=== PATIENT | male | born 1955 | race Caucasian/White ===

== ENCOUNTER 2017-07-04 07:23 | Day surgery (SDC) | payer BC ==
[~2017-07-04 07:23] MED LIST: CEFAZOLIN 1 GM INJ; SOD CHLORIDE 0.9% 1,000 ML IV
[2017-07-04] MEDS ORDERED: FENTAnyl 50 MCG/ML VIAL (10:52)
[2017-07-04] MEDS: CEFAZOLIN 2 GM/50 ML (PMX) 50 ML IVPB (11:05)
[2017-07-04] MEDS ORDERED: SUCCINYLCHOLINE CHLORIDE 100 MG/5 ML SYG IV (11:19)
[2017-07-04] MEDS ORDERED: ROCURONIUM 50 MG INJ (11:19)
[2017-07-04] MEDS ORDERED: ROPIVACAINE 0.5 % 30 ML VIAL (11:19)
[2017-07-04] MEDS ORDERED: LIDOCAINE 2% (SDV) 5 ML INJ (11:19)
[2017-07-04] MEDS ORDERED: PROPOFOL 20 ML (11:19)
[2017-07-04] MEDS ORDERED: SUGAMMADEX SODIUM 200 MG/2 ML VIAL IV (11:20)
[2017-07-04] MEDS: POLYMYXIN/BACITRACIN 1L IRRIG IRR (12:00)
[2017-07-04] MEDS: BUPIVACAINE 0.25% (MPF) 30 ML INJ (12:00)
[2017-07-04] MEDS ORDERED: HYDROmorphONE (0.2 MG/ML) 10ML SYG IV ×6 (12:11→13:00)
[2017-07-04] MEDS: HYDROmorphONE (0.2 MG/ML) 10ML SYG IV (12:20)
[2017-07-04] MEDS: ONDANSETRON 4 MG INJ IV (12:21)
[2017-07-04] MEDS: HYDROCODONE/APAP (5/325) TAB PO (12:26)
[2017-07-04] MEDS ORDERED: FENTAnyl 50 MCG/ML VIAL IV ×5 (12:30→13:00)
[2017-07-04] MEDS ORDERED: METOCLOPRAMIDE 10 MG INJ IV (13:00)
[2017-07-04] MEDS ORDERED: DIPHENHYDRAMINE 50 MG INJ IV (13:00)
[2017-07-04] MEDS ORDERED: ONDANSETRON 4 MG INJ IV (13:00)
[2017-07-04] MEDS ORDERED: MEPERIDINE 25 MG INJ IV (13:00)
== END 2017-07-04 13:45 | disposition home or self-care (01) ==
LOC: SDS 07:23
DX: K40.30 Unilateral inguinal hernia, with obstruction, without gangrene, not specified as recurrent (principal); E11.9 Type 2 diabetes mellitus without complications; Z79.4 Long term (current) use of insulin; F17.200 Nicotine dependence, unspecified, uncomplicated
CPT/HCPCS: 49507; 71045; 82962

== ENCOUNTER 2017-07-06 01:16 | Emergency (ER) | payer BC ==
[2017-07-06 02:46] LABS: ADD MAN DIFF? NO
[2017-07-06 02:55] LABS: BASOPHILS % 0.5 % (0.0-2.0); EOSINOPHILS # 0.1 10^3/ul (0.0-0.5); EOSINOPHILS % 1.1 % (0.0-7.0); HEMOGLOBIN 14.1 g/dl (14.0-18.0); LYMPHOCYTES # 2.8 10^3/ul (0.8-2.9); LYMPHOCYTES % 37.2 % (15.0-51.0); MEAN CORPUSCULAR HEMOGLOBIN 31.8 pg (29.0-33.0); MEAN CORPUSCULAR HGB CONC 34.4 g/dl (32.0-37.0); MEAN CORPUSCULAR VOLUME 92.6 fl (82.0-101.0); MEAN PLATELET VOLUME 9.8 fl (7.4-10.4); MONOCYTE # 0.8 10^3/ul (0.3-0.9); MONOCYTES % 10.1 % (0.0-11.0); NEUTROPHIL # 3.8 10^3/ul (1.6-7.5); NEUTROPHILS % 50.8 % (39.0-77.0); PLATELET COUNT 149 10^3/UL (140-415); RED BLOOD COUNT 4.43 10^6/ul (4.70-6.10); RED CELL DISTRIBUTION WIDTH 12.6 % (11.5-14.5)
[2017-07-06 02:55] LABS: WHITE BLOOD COUNT 7.5 10^3/ul (4.8-10.8)
[2017-07-06] MEDS: morphine 4 MG/ML VIAL IV (03:05)
[2017-07-06] MEDS: ONDANSETRON 4 MG INJ IV (03:05)
[2017-07-06 03:15] LABS: ALANINE AMINOTRANSFERASE 50 IU/L (13-69); ALBUMIN 4.4 g/dl (3.3-4.9); ALBUMIN/GLOBULIN RATIO 1.57; ALKALINE PHOSPHATASE 65 IU/L (42-121); ANION GAP 13 (8-16); ASPARTATE AMINO TRANSFERASE 22 IU/L (15-46); BILIRUBIN,INDIRECT 0.4 mg/dl (0-1.1); BILIRUBIN,TOTAL 0.4 mg/dl (0.2-1.3); BLOOD UREA NITROGEN 8 mg/dl (7-20); CARBON DIOXIDE 28 mmol/L (21-31); CHLORIDE 107 mmol/L (97-110); CREATININE 0.87 mg/dl (0.61-1.24); GLUCOSE 144 mg/dl (70-220); LIPASE 102 U/L (23-300); POTASSIUM 4.1 mmol/L (3.5-5.1); SODIUM 144 mmol/L (135-144); TOTAL PROTEIN 7.2 g/dl (6.1-8.1)
[2017-07-06 03:18] LABS: ADD UMIC NO; UR ASCORBIC ACID NEGATIVE (NEGATIVE); UR BILIRUBIN (Dip) NEGATIVE (NEGATIVE); UR BLOOD (Dip) NEGATIVE (NEGATIVE); UR CLARITY CLEAR (CLEAR); UR COLOR STRAW (YELLOW); UR GLUCOSE (Dip) NEGATIVE (NEGATIVE); UR KETONES (Dip) NEGATIVE (NEGATIVE); UR LEUKOCYTE ESTERASE (Dip) NEGATIVE Leu/ul (NEGATIVE); UR NITRITE (Dip) NEGATIVE (NEGATIVE); UR SPECIFIC GRAVITY (Dip) 1.005 (1.003-1.030); UR TOTAL PROTEIN (Dip) NEGATIVE (NEGATIVE); UR UROBILINOGEN (Dip) NEGATIVE (NEGATIVE)
== END 2017-07-06 04:30 | disposition home or self-care (01) ==
LOC: E/R 01:16
DX: N50.812 Left testicular pain (principal); E11.9 Type 2 diabetes mellitus without complications; F17.210 Nicotine dependence, cigarettes, uncomplicated; Z79.82 Long term (current) use of aspirin; Z79.84 Long term (current) use of oral hypoglycemic drugs
CPT/HCPCS: 36415; 74176; 76870; 80053; 81003; 83690; 85025; 96374; 96375; 99285-25

== ENCOUNTER 2018-07-12 17:38 | Emergency (ER) | payer BC ==
[2018-07-12 23:06] LABS: ADD MAN DIFF? NO
[2018-07-12 23:09] LABS: BASOPHILS % 0.4 % (0.0-2.0); EOSINOPHILS # 0.2 10^3/ul (0.0-0.5); EOSINOPHILS % 2.8 % (0.0-7.0); HEMATOCRIT 42.3 % (42.0-52.0); HEMOGLOBIN 14.3 g/dl (14.0-18.0); LYMPHOCYTES # 3.1 10^3/ul (0.8-2.9); LYMPHOCYTES % 41.1 % (15.0-51.0); MEAN CORPUSCULAR HEMOGLOBIN 30.4 pg (29.0-33.0); MEAN CORPUSCULAR HGB CONC 33.8 g/dl (32.0-37.0); MEAN PLATELET VOLUME 9.6 fl (7.4-10.4); MONOCYTE # 0.5 10^3/ul (0.3-0.9); NEUTROPHIL # 3.6 10^3/ul (1.6-7.5); NEUTROPHILS % 48.3 % (39.0-77.0); PLATELET COUNT 186 10^3/UL (140-415); RED CELL DISTRIBUTION WIDTH 12.9 % (11.5-14.5)
[2018-07-12 23:09] LABS: WHITE BLOOD COUNT 7.4 10^3/ul (4.8-10.8)
[2018-07-12 23:18] LABS: ALANINE AMINOTRANSFERASE 29 IU/L (13-69); ALBUMIN 4.2 g/dl (3.3-4.9); ALBUMIN/GLOBULIN RATIO 1.35; ALKALINE PHOSPHATASE 87 IU/L (42-121); ANION GAP 10 (5-13); ASPARTATE AMINO TRANSFERASE 16 IU/L (15-46); BILIRUBIN,INDIRECT 0.4 mg/dl (0-1.1); BILIRUBIN,TOTAL 0.4 mg/dl (0.2-1.3); BLOOD UREA NITROGEN 11 mg/dl (7-20); CALCIUM 9.2 mg/dl (8.4-10.2); CARBON DIOXIDE 28 mmol/L (21-31); CHLORIDE 103 mmol/L (97-110); CREATININE 0.78 mg/dl (0.61-1.24); Estimated GFR > 60 mL/min (>60); GLUCOSE 195 mg/dl (70-220); LIPASE 125 U/L (23-300); POTASSIUM 3.8 mmol/L (3.5-5.1); SODIUM 141 mmol/L (135-144); TOTAL PROTEIN 7.3 g/dl (6.1-8.1)
[2018-07-12 23:20] LABS: URINE BLOOD (Dip) POC Negative (NEGATIVE); URINE GLUCOSE (Dip) POC Negative (NEGATIVE); URINE KETONES (Dip) POC Negative (NEGATIVE); URINE LEUKOCYTE EST (Dip) POC Negative (NEGATIVE); URINE NITRITE (Dip) POC Negative (NEGATIVE); URINE TOTAL PROTEIN POC 1+ (NEGATIVE)
[2018-07-12] MEDS: KETOROLAC 30 MG INJ IV (23:23)
== END 2018-07-12 23:56 | disposition home or self-care (01) ==
LOC: E/R 23:56
DX: K92.1 Melena (principal); E11.9 Type 2 diabetes mellitus without complications; Z79.84 Long term (current) use of oral hypoglycemic drugs; Z79.82 Long term (current) use of aspirin; Z87.891 Personal history of nicotine dependence
CPT/HCPCS: 36415; 80053; 81003; 83690; 85025; 96374; 99284-25

== ENCOUNTER 2018-08-24 11:51 | Inpatient (IN) | payer BC ==
[2018-08-24 12:44] LABS: ADD MAN DIFF? NO
[2018-08-24 12:49] LABS: WHITE BLOOD COUNT 13.1 10^3/ul (4.8-10.8)
[2018-08-24 12:49] LABS: BASOPHIL # 0.1 10^3/ul (0.0-0.1); BASOPHILS % 0.5 % (0.0-2.0); EOSINOPHILS # 0.1 10^3/ul (0.0-0.5); EOSINOPHILS % 0.8 % (0.0-7.0); HEMOGLOBIN 15.3 g/dl (14.0-18.0); LYMPHOCYTES # 2.5 10^3/ul (0.8-2.9); LYMPHOCYTES % 19.3 % (15.0-51.0); MEAN CORPUSCULAR HEMOGLOBIN 29.9 pg (29.0-33.0); MEAN CORPUSCULAR HGB CONC 33.3 g/dl (32.0-37.0); MEAN CORPUSCULAR VOLUME 89.8 fl (82.0-101.0); MEAN PLATELET VOLUME 9.6 fl (7.4-10.4); MONOCYTES % 7.6 % (0.0-11.0); NEUTROPHIL # 9.3 10^3/ul (1.6-7.5); NEUTROPHILS % 71.3 % (39.0-77.0); PLATELET COUNT 269 10^3/UL (140-415); RED BLOOD COUNT 5.12 10^6/ul (4.70-6.10)
[2018-08-24] MEDS: ONDANSETRON 4 MG INJ IV (13:01)
[2018-08-24] MEDS: SOD CHLORIDE 0.9% 1,000 ML IV (13:01)
[2018-08-24] MEDS: morphine 4 MG/ML VIAL IV ×2 (13:01→16:56)
[2018-08-24 13:07] LABS: ALANINE AMINOTRANSFERASE 33 IU/L (13-69); ALBUMIN 4.7 g/dl (3.3-4.9); ALBUMIN/GLOBULIN RATIO 1.38; ALKALINE PHOSPHATASE 81 IU/L (42-121); ANION GAP 12 (5-13); ASPARTATE AMINO TRANSFERASE 22 IU/L (15-46); BILIRUBIN,INDIRECT 0.8 mg/dl (0-1.1); BILIRUBIN,TOTAL 0.8 mg/dl (0.2-1.3); BLOOD UREA NITROGEN 13 mg/dl (7-20); CALCIUM 10.3 mg/dl (8.4-10.2); CARBON DIOXIDE 24 mmol/L (21-31); CHLORIDE 104 mmol/L (97-110); CREATININE 0.99 mg/dl (0.61-1.24); Estimated GFR > 60 mL/min (>60); GLUCOSE 252 mg/dl (70-220); POTASSIUM 4.2 mmol/L (3.5-5.1); SODIUM 140 mmol/L (135-144); TOTAL PROTEIN 8.1 g/dl (6.1-8.1)
[2018-08-24 13:09] LABS: INR 0.97
[2018-08-24 13:18] LABS: TROPONIN-I < 0.012 ng/ml (0.000-0.120)
[2018-08-24 14:40] LABS: LIPASE 97 U/L (23-300)
[2018-08-24] MEDS ORDERED: ONDANSETRON 4 MG INJ IV ×2 (15:00→18:00)
[2018-08-24] MEDS ORDERED: ACETAMINOPHEN 325 MG TAB PO (15:00)
[2018-08-24] MEDS: LIDOCAINE 2% VISC 15 ML CUP PO (15:30)
[2018-08-24] MEDS: PIPER-TAZO 3.375 GM IV (PMX) 100 ML IVPB ×2 (16:14→21:57)
[2018-08-24] MEDS: metroNIDAZOLE 500 MG/NS (PMX) 100 ML IVPB (16:43)
[2018-08-24] MEDS ORDERED: ACETAMINOPHEN 1000MG/100ML IV 100 ML IVPB (18:00)
[2018-08-24] MEDS ORDERED: GLUCOSE GEL 15 GRAM TUBE BUCCAL (18:30)
[2018-08-24] MEDS ORDERED: GLUCOSE GEL 15 GRAM TUBE PO ×2 (18:30)
[2018-08-24] MEDS ORDERED: DEXTROSE 50% 50 ML SYRINGE IV ×2 (18:30)
[2018-08-24] MEDS ORDERED: GLUCAGON 1 MG INJ IM (18:30)
[2018-08-24] MEDS ORDERED: INSULIN ASPART [NOVOLOG] 3 ML PEN SC (19:00)
[2018-08-24] MEDS: 1/2 NS + KCL 20 MEQ 1,000 ML IV (19:38)
[2018-08-24] MEDS: morphine 2 MG INJ IV (20:26)
[2018-08-24] MEDS: METHYLPREDNISOLONE 40 MG INJ IV (20:50)
[2018-08-24] MEDS: INSULIN GLARGINE [LANTus] (100 UNITS/ML) SYG SC (20:52)
[2018-08-24] MEDS: INSULIN ASPART [NOVOLOG] 3 ML PEN SC (21:52)
[2018-08-25] MEDS: INSULIN ASPART [NOVOLOG] 3 ML PEN SC ×6 (01:43→20:56)
[2018-08-25] MEDS: ACCU-CHEK XX (01:44)
[2018-08-25] MEDS ORDERED: PANTOPRAZOLE 40 MG INJ (04:18)
[2018-08-25] MEDS: 1/2 NS + KCL 20 MEQ 1,000 ML IV ×3 (05:30→23:11)
[2018-08-25] MEDS: PANTOPRAZOLE 40 MG INJ IV (05:48)
[2018-08-25] MEDS: PIPER-TAZO 3.375 GM IV (PMX) 100 ML IVPB ×3 (05:48→21:34)
[2018-08-25 05:51] LABS: ADD MAN DIFF? NO
[2018-08-25 05:56] LABS: WHITE BLOOD COUNT 9.1 10^3/ul (4.8-10.8)
[2018-08-25 05:56] LABS: BASOPHILS % 0.1 % (0.0-2.0); HEMATOCRIT 40.8 % (42.0-52.0); HEMOGLOBIN 13.5 g/dl (14.0-18.0); LYMPHOCYTES # 1.3 10^3/ul (0.8-2.9); LYMPHOCYTES % 13.9 % (15.0-51.0); MEAN CORPUSCULAR HEMOGLOBIN 29.7 pg (29.0-33.0); MEAN CORPUSCULAR HGB CONC 33.1 g/dl (32.0-37.0); MEAN CORPUSCULAR VOLUME 89.9 fl (82.0-101.0); MONOCYTE # 0.3 10^3/ul (0.3-0.9); MONOCYTES % 3.2 % (0.0-11.0); NEUTROPHIL # 7.5 10^3/ul (1.6-7.5); NEUTROPHILS % 82.4 % (39.0-77.0); PLATELET COUNT 217 10^3/UL (140-415); RED BLOOD COUNT 4.54 10^6/ul (4.70-6.10); RED CELL DISTRIBUTION WIDTH 13.2 % (11.5-14.5)
[2018-08-25 06:24] LABS: ANION GAP 8 (5-13); BLOOD UREA NITROGEN 13 mg/dl (7-20); CALCIUM 8.8 mg/dl (8.4-10.2); CARBON DIOXIDE 24 mmol/L (21-31); CHLORIDE 106 mmol/L (97-110); CREATININE 0.89 mg/dl (0.61-1.24); Estimated GFR > 60 mL/min (>60); GLUCOSE 218 mg/dl (70-220); POTASSIUM 4.5 mmol/L (3.5-5.1); SODIUM 138 mmol/L (135-144)
[2018-08-25] MEDS: METHYLPREDNISOLONE 40 MG INJ IV ×2 (08:11→20:54)
[2018-08-25] MEDS: INSULIN GLARGINE [LANTus] (100 UNITS/ML) SYG SC (20:55)
[2018-08-26] MEDS: INSULIN ASPART [NOVOLOG] 3 ML PEN SC ×6 (00:36→20:35)
[2018-08-26] MEDS: ACCU-CHEK XX (01:02)
[2018-08-26] MEDS: PANTOPRAZOLE 40 MG INJ IV (05:37)
[2018-08-26] MEDS: PIPER-TAZO 3.375 GM IV (PMX) 100 ML IVPB ×3 (05:37→21:05)
[2018-08-26] MEDS: METHYLPREDNISOLONE 40 MG INJ IV ×2 (08:10→20:35)
[2018-08-26] MEDS: 1/2 NS + KCL 20 MEQ 1,000 ML IV ×3 (10:50→21:40)
[2018-08-26] MEDS: INSULIN GLARGINE [LANTus] (100 UNITS/ML) SYG SC (20:36)
[2018-08-27] MEDS: ACCU-CHEK XX (02:00)
[2018-08-27] MEDS ORDERED: ACCU-CHEK XX (02:00)
[2018-08-27] MEDS: PANTOPRAZOLE 40 MG INJ IV (05:13)
[2018-08-27] MEDS: PIPER-TAZO 3.375 GM IV (PMX) 100 ML IVPB ×3 (05:13→20:52)
[2018-08-27] MEDS: METHYLPREDNISOLONE 40 MG INJ IV (09:43)
[2018-08-27] MEDS: INSULIN ASPART [NOVOLOG] 3 ML PEN SC ×4 (09:43→20:50)
[2018-08-27] MEDS: 1/2 NS + KCL 20 MEQ 1,000 ML IV ×2 (09:46→22:53)
[2018-08-27] MEDS: IOHEXOL 300MG/ML 150 ML BTL ×3 (12:30→12:31)
[2018-08-27] MEDS: PEG/ELECTROLYTES 4L BTL PO (17:40)
[2018-08-27] MEDS: INSULIN GLARGINE [LANTus] (100 UNITS/ML) SYG SC (20:59)
[2018-08-28] MEDS: INSULIN ASPART [NOVOLOG] 3 ML PEN SC ×6 (01:02→21:00)
[2018-08-28] MEDS: ACCU-CHEK XX (01:04)
[2018-08-28] MEDS: PIPER-TAZO 3.375 GM IV (PMX) 100 ML IVPB ×2 (05:17→12:57)
[2018-08-28] MEDS: PANTOPRAZOLE 40 MG INJ IV (05:17)
[2018-08-28] MEDS: 1/2 NS + KCL 20 MEQ 1,000 ML IV (11:10)
[2018-08-28] MEDS: PROPOFOL 40 ML (15:37)
[2018-08-28] MEDS: LIDOCAINE 100 MG SYRINGE (15:37)
[2018-08-28] MEDS ORDERED: ONDANSETRON 4 MG INJ IV (16:00)
[2018-08-28] MEDS ORDERED: METOCLOPRAMIDE 10 MG INJ IV (16:00)
[2018-08-28] MEDS ORDERED: LABETALOL HCL 20MG INJ IV (16:00)
[2018-08-28] MEDS ORDERED: hydrALAzine 20 MG INJ IV (16:00)
[2018-08-28] MEDS: INSULIN GLARGINE [LANTus] (100 UNITS/ML) SYG SC (21:02)
[2018-08-28] MEDS: morphine 2 MG INJ IV (23:32)
[2018-08-29] MEDS: ACCU-CHEK XX (01:00)
[2018-08-29 01:17] LABS: TROPONIN-I < 0.012 ng/ml (0.000-0.120)
[2018-08-29] MEDS: 1/2 NS + KCL 20 MEQ 1,000 ML IV ×4 (02:26→19:30)
[2018-08-29] MEDS: PANTOPRAZOLE 40 MG INJ IV (05:36)
[2018-08-29 06:26] LABS: CHOL/HDL RATIO 4.2 RATIO; HDL CHOLESTEROL 28 mg/dl (30-78); LDL CHOLESTEROL,CALCULATED 51 mg/dl; TRIGLYCERIDES 194 mg/dl (0-149)
[2018-08-29 06:26] LABS: CHOLESTEROL 118 mg/dl (100-200)
[2018-08-29 06:37] LABS: TROPONIN-I < 0.012 ng/ml (0.000-0.120)
[2018-08-29] MEDS: INSULIN ASPART [NOVOLOG] 3 ML PEN SC ×4 (08:28→20:43)
[2018-08-29 14:38] LABS: ADD MAN DIFF? NO
[2018-08-29 14:41] LABS: WHITE BLOOD COUNT 8.4 10^3/ul (4.8-10.8)
[2018-08-29 14:41] LABS: BASOPHILS % 0.4 % (0.0-2.0); EOSINOPHILS # 0.1 10^3/ul (0.0-0.5); EOSINOPHILS % 1.3 % (0.0-7.0); HEMATOCRIT 41.6 % (42.0-52.0); LYMPHOCYTES % 35.2 % (15.0-51.0); MEAN CORPUSCULAR HEMOGLOBIN 30.1 pg (29.0-33.0); MEAN CORPUSCULAR HGB CONC 33.7 g/dl (32.0-37.0); MEAN CORPUSCULAR VOLUME 89.5 fl (82.0-101.0); MEAN PLATELET VOLUME 9.8 fl (7.4-10.4); MONOCYTE # 0.6 10^3/ul (0.3-0.9); MONOCYTES % 6.9 % (0.0-11.0); NEUTROPHIL # 4.7 10^3/ul (1.6-7.5); PLATELET COUNT 209 10^3/UL (140-415); RED BLOOD COUNT 4.65 10^6/ul (4.70-6.10); RED CELL DISTRIBUTION WIDTH 13.3 % (11.5-14.5)
[2018-08-29 14:57] LABS: ANION GAP 9 (5-13); BLOOD UREA NITROGEN 15 mg/dl (7-20); CALCIUM 8.9 mg/dl (8.4-10.2); CARBON DIOXIDE 26 mmol/L (21-31); CHLORIDE 104 mmol/L (97-110); CREATININE 0.91 mg/dl (0.61-1.24); Estimated GFR > 60 mL/min (>60); GLUCOSE 259 mg/dl (70-220); POTASSIUM 4.6 mmol/L (3.5-5.1); SODIUM 139 mmol/L (135-144)
[2018-08-29 15:00] LABS: INR 0.93; PARTIAL THROMBOPLASTIN TIME 25.9 Sec (23.0-35.0); PROTIME 12.6 Sec (11.9-14.9); THROMBIN TIME 15.3 SEC (13.8-19.1)
[2018-08-29 15:03] LABS: PLATELET COUNT 215 10^3/UL (140-415)
[2018-08-29 18:31] LABS: HEMOGLOBIN A1C 8.6 % (0-5.9)
[2018-08-29] MEDS: INSULIN GLARGINE [LANTus] (100 UNITS/ML) SYG SC (20:43)
[2018-08-30] MEDS: ACCU-CHEK XX (02:00)
[2018-08-30] MEDS: 1/2 NS + KCL 20 MEQ 1,000 ML IV ×2 (06:11→20:16)
[2018-08-30] MEDS: PANTOPRAZOLE 40 MG INJ IV (06:11)
[2018-08-30 06:57] LABS: ADD MAN DIFF? NO
[2018-08-30 07:01] LABS: WHITE BLOOD COUNT 7.3 10^3/ul (4.8-10.8)
[2018-08-30 07:01] LABS: BASOPHILS % 0.3 % (0.0-2.0); EOSINOPHILS # 0.2 10^3/ul (0.0-0.5); HEMATOCRIT 41.2 % (42.0-52.0); HEMOGLOBIN 13.5 g/dl (14.0-18.0); LYMPHOCYTES # 3.2 10^3/ul (0.8-2.9); LYMPHOCYTES % 43.2 % (15.0-51.0); MEAN CORPUSCULAR HEMOGLOBIN 29.8 pg (29.0-33.0); MEAN CORPUSCULAR HGB CONC 32.8 g/dl (32.0-37.0); MEAN CORPUSCULAR VOLUME 90.9 fl (82.0-101.0); MEAN PLATELET VOLUME 9.9 fl (7.4-10.4); MONOCYTE # 0.6 10^3/ul (0.3-0.9); MONOCYTES % 8.3 % (0.0-11.0); NEUTROPHIL # 3.3 10^3/ul (1.6-7.5); NEUTROPHILS % 44.9 % (39.0-77.0); PLATELET COUNT 192 10^3/UL (140-415); RED BLOOD COUNT 4.53 10^6/ul (4.70-6.10); RED CELL DISTRIBUTION WIDTH 13.2 % (11.5-14.5)
[2018-08-30 07:33] LABS: ALANINE AMINOTRANSFERASE 47 IU/L (13-69); ALBUMIN 3.7 g/dl (3.3-4.9); ALBUMIN/GLOBULIN RATIO 1.37; ALKALINE PHOSPHATASE 57 IU/L (42-121); ANION GAP 8 (5-13); ASPARTATE AMINO TRANSFERASE 33 IU/L (15-46); BILIRUBIN,INDIRECT 0.4 mg/dl (0-1.1); BILIRUBIN,TOTAL 0.4 mg/dl (0.2-1.3); BLOOD UREA NITROGEN 12 mg/dl (7-20); CALCIUM 8.8 mg/dl (8.4-10.2); CARBON DIOXIDE 28 mmol/L (21-31); CHLORIDE 103 mmol/L (97-110); CREATININE 0.91 mg/dl (0.61-1.24); Estimated GFR > 60 mL/min (>60); GLUCOSE 177 mg/dl (70-220); POTASSIUM 4.6 mmol/L (3.5-5.1); SODIUM 139 mmol/L (135-144); TOTAL PROTEIN 6.4 g/dl (6.1-8.1)
[2018-08-30 07:36] LABS: INR 0.99; PROTIME 13.2 Sec (11.9-14.9)
[2018-08-30 07:36] LABS: HEMOGLOBIN A1C 8.5 % (0-5.9)
[2018-08-30 07:37] LABS: PARTIAL THROMBOPLASTIN TIME 26.8 Sec (23.0-35.0)
[2018-08-30] MEDS: INSULIN ASPART [NOVOLOG] 3 ML PEN SC ×4 (09:00→21:36)
[2018-08-30] MEDS ORDERED: PROPOFOL 20 ML (11:32)
[2018-08-30] MEDS ORDERED: MEPERIDINE 100 MG INJ (11:32)
[2018-08-30] MEDS ORDERED: NEOSTIGMINE 3 MG/3 ML SYRINGE ×2 (11:32→12:37)
[2018-08-30] MEDS ORDERED: GLYCOPYRROLATE 0.4 MG INJ ×3 (11:32→12:37)
[2018-08-30] MEDS ORDERED: LIDOCAINE 2% (SDV) 5 ML INJ (11:32)
[2018-08-30] MEDS ORDERED: SUCCINYLCHOLINE CHLORIDE 100 MG/5 ML SYG IV (11:32)
[2018-08-30] MEDS ORDERED: ROCURONIUM 50 MG INJ ×3 (11:32→14:51)
[2018-08-30] MEDS ORDERED: CEFAZOLIN 1 GM INJ (11:56)
[2018-08-30] MEDS ORDERED: metroNIDAZOLE 500 MG/NS (PMX) 100 ML IVPB ×3 (12:05→17:00)
[2018-08-30] MEDS ORDERED: ATROPINE 1 MG/10 ML SYRINGE (12:37)
[2018-08-30] MEDS: LIDOCAINE 1%/EPI (1:100,000) (MDV) 20 ML (12:39)
[2018-08-30] MEDS: BUPIVACAINE 0.5% (SDV) 30 ML INJ (12:40)
[2018-08-30] MEDS ORDERED: METOCLOPRAMIDE 10 MG INJ IV (15:30)
[2018-08-30] MEDS ORDERED: FENTAnyl 50 MCG/ML VIAL IV ×2 (15:30)
[2018-08-30] MEDS ORDERED: MIDAZOLAM 1 MG/ML 2 ML INJ IV (15:30)
[2018-08-30] MEDS ORDERED: LABETALOL HCL 20MG INJ IV (15:30)
[2018-08-30] MEDS ORDERED: hydrALAzine 20 MG INJ IV (15:30)
[2018-08-30] MEDS ORDERED: EPHEDrine SULFATE 50 MG/5 ML SYG IV (15:30)
[2018-08-30] MEDS ORDERED: DIPHENHYDRAMINE 50 MG INJ IV (15:30)
[2018-08-30] MEDS ORDERED: HYDROmorphONE 1 MG/5 ML IV SYRINGE IV ×2 (15:30)
[2018-08-30] MEDS: FENTAnyl 50 MCG/ML VIAL IV ×2 (15:40→15:58)
[2018-08-30] MEDS: HYDROmorphONE 1 MG/5 ML IV SYRINGE IV (16:06)
[2018-08-30] MEDS: MEPERIDINE 25 MG INJ IV (16:07)
[2018-08-30] MEDS: ONDANSETRON 4 MG INJ IV (16:07)
[2018-08-30] MEDS ORDERED: CEFAZOLIN 2 GM/50 ML (PMX) 50 ML IVPB (16:30)
[2018-08-30] MEDS ORDERED: IBUPROFEN 600 MG TAB PO (16:30)
[2018-08-30] MEDS ORDERED: ONDANSETRON 4 MG INJ IV (16:30)
[2018-08-30] MEDS: morphine 2 MG INJ IV (21:01)
[2018-08-30] MEDS: CEFAZOLIN 2 GM/50 ML (PMX) 50 ML IVPB (22:03)
[2018-08-30] MEDS: INSULIN GLARGINE [LANTus] (100 UNITS/ML) SYG SC (22:09)
[2018-08-30] MEDS: metroNIDAZOLE 500 MG/NS (PMX) 100 ML IVPB (22:49)
[2018-08-30] MEDS: HYDROCODONE/APAP (5/325) TAB PO (23:34)
[2018-08-31] MEDS: INSULIN ASPART [NOVOLOG] 3 ML PEN SC ×6 (01:00→21:00)
[2018-08-31] MEDS: morphine 2 MG INJ IV ×5 (01:25→20:05)
[2018-08-31] MEDS: ACCU-CHEK XX (02:00)
[2018-08-31] MEDS: CEFAZOLIN 2 GM/50 ML (PMX) 50 ML IVPB ×3 (04:40→20:05)
[2018-08-31] MEDS: ACETAMINOPHEN 325 MG TAB PO (05:02)
[2018-08-31] MEDS: PANTOPRAZOLE 40 MG INJ IV (05:28)
[2018-08-31] MEDS: metroNIDAZOLE 500 MG/NS (PMX) 100 ML IVPB ×3 (05:35→23:08)
[2018-08-31] MEDS: 1/2 NS + KCL 20 MEQ 1,000 ML IV ×2 (07:03→11:24)
[2018-08-31] MEDS: HYDROCODONE/APAP (5/325) TAB PO ×2 (11:19→18:24)
[2018-08-31 14:47] LABS: ADD MAN DIFF? NO
[2018-08-31 14:50] LABS: BASOPHILS % 0.2 % (0.0-2.0); EOSINOPHILS # 0.1 10^3/ul (0.0-0.5); EOSINOPHILS % 0.5 % (0.0-7.0); HEMATOCRIT 41.7 % (42.0-52.0); HEMOGLOBIN 13.8 g/dl (14.0-18.0); LYMPHOCYTES # 2.1 10^3/ul (0.8-2.9); LYMPHOCYTES % 19.4 % (15.0-51.0); MEAN CORPUSCULAR HEMOGLOBIN 30.2 pg (29.0-33.0); MEAN CORPUSCULAR HGB CONC 33.1 g/dl (32.0-37.0); MEAN CORPUSCULAR VOLUME 91.2 fl (82.0-101.0); MEAN PLATELET VOLUME 9.5 fl (7.4-10.4); MONOCYTES % 9.3 % (0.0-11.0); NEUTROPHIL # 7.7 10^3/ul (1.6-7.5); NEUTROPHILS % 70.2 % (39.0-77.0); PLATELET COUNT 212 10^3/UL (140-415); RED BLOOD COUNT 4.57 10^6/ul (4.70-6.10); RED CELL DISTRIBUTION WIDTH 13.2 % (11.5-14.5)
[2018-08-31 15:12] LABS: ANION GAP 11 (5-13); BLOOD UREA NITROGEN 11 mg/dl (7-20); CALCIUM 8.6 mg/dl (8.4-10.2); CARBON DIOXIDE 27 mmol/L (21-31); CHLORIDE 100 mmol/L (97-110); CREATININE 1.02 mg/dl (0.61-1.24); Estimated GFR > 60 mL/min (>60); GLUCOSE 111 mg/dl (70-220); POTASSIUM 4.2 mmol/L (3.5-5.1); SODIUM 138 mmol/L (135-144)
[2018-08-31] MEDS: INSULIN GLARGINE [LANTus] (100 UNITS/ML) SYG SC (21:46)
[2018-09-01] MEDS: morphine 2 MG INJ IV ×5 (00:08→20:41)
[2018-09-01] MEDS: 1/2 NS + KCL 20 MEQ 1,000 ML IV ×4 (00:08→16:42)
[2018-09-01] MEDS: INSULIN ASPART [NOVOLOG] 3 ML PEN SC ×6 (01:00→21:00)
[2018-09-01] MEDS: ACCU-CHEK XX (02:00)
[2018-09-01] MEDS: CEFAZOLIN 2 GM/50 ML (PMX) 50 ML IVPB ×3 (04:43→20:50)
[2018-09-01] MEDS: metroNIDAZOLE 500 MG/NS (PMX) 100 ML IVPB ×3 (04:49→20:47)
[2018-09-01] MEDS: PANTOPRAZOLE 40 MG INJ IV (05:45)
[2018-09-01 05:53] LABS: ADD MAN DIFF? NO
[2018-09-01 05:59] LABS: BASOPHILS % 0.2 % (0.0-2.0); EOSINOPHILS # 0.2 10^3/ul (0.0-0.5); EOSINOPHILS % 1.4 % (0.0-7.0); HEMATOCRIT 39.5 % (42.0-52.0); HEMOGLOBIN 12.9 g/dl (14.0-18.0); LYMPHOCYTES # 1.9 10^3/ul (0.8-2.9); LYMPHOCYTES % 17.8 % (15.0-51.0); MEAN CORPUSCULAR HEMOGLOBIN 30.1 pg (29.0-33.0); MEAN CORPUSCULAR HGB CONC 32.7 g/dl (32.0-37.0); MEAN CORPUSCULAR VOLUME 92.1 fl (82.0-101.0); MEAN PLATELET VOLUME 9.8 fl (7.4-10.4); MONOCYTE # 1.3 10^3/ul (0.3-0.9); MONOCYTES % 12.4 % (0.0-11.0); NEUTROPHILS % 67.5 % (39.0-77.0); PLATELET COUNT 173 10^3/UL (140-415); RED BLOOD COUNT 4.29 10^6/ul (4.70-6.10); RED CELL DISTRIBUTION WIDTH 13.3 % (11.5-14.5)
[2018-09-01 05:59] LABS: WHITE BLOOD COUNT 10.4 10^3/ul (4.8-10.8)
[2018-09-01 06:07] LABS: ANION GAP 9 (5-13); BLOOD UREA NITROGEN 12 mg/dl (7-20); CALCIUM 8.8 mg/dl (8.4-10.2); CARBON DIOXIDE 26 mmol/L (21-31); CHLORIDE 104 mmol/L (97-110); Estimated GFR > 60 mL/min (>60); GLUCOSE 82 mg/dl (70-220); POTASSIUM 4.3 mmol/L (3.5-5.1); SODIUM 139 mmol/L (135-144)
[2018-09-01 16:11] LABS: ADD UMIC YES; UR ASCORBIC ACID NEGATIVE (NEGATIVE); UR BILIRUBIN (Dip) NEGATIVE (NEGATIVE); UR BLOOD (Dip) NEGATIVE (NEGATIVE); UR CLARITY CLEAR (CLEAR); UR COLOR YELLOW (YELLOW); UR GLUCOSE (Dip) NEGATIVE (NEGATIVE); UR KETONES (Dip) 2+ mg/dL (NEGATIVE); UR LEUKOCYTE ESTERASE (Dip) TRACE Leu/ul (NEGATIVE); UR MUCUS FEW /HPF (NONE SEEN); UR NITRITE (Dip) NEGATIVE (NEGATIVE); UR RBC 2 /HPF (0-5); UR TOTAL PROTEIN (Dip) NEGATIVE (NEGATIVE); UR UROBILINOGEN (Dip) NEGATIVE (NEGATIVE); UR WBC 2 /HPF (0-5)
[2018-09-01] MEDS: HYDROCODONE/APAP (5/325) TAB PO ×2 (16:30→23:05)
[2018-09-01] MEDS: INSULIN GLARGINE [LANTus] (100 UNITS/ML) SYG SC (21:46)
[2018-09-02] MEDS: INSULIN ASPART [NOVOLOG] 3 ML PEN SC ×6 (01:00→21:00)
[2018-09-02] MEDS: morphine 2 MG INJ IV ×4 (01:15→18:14)
[2018-09-02] MEDS: ACCU-CHEK XX (02:00)
[2018-09-02] MEDS: CEFAZOLIN 2 GM/50 ML (PMX) 50 ML IVPB ×3 (04:16→20:28)
[2018-09-02] MEDS: metroNIDAZOLE 500 MG/NS (PMX) 100 ML IVPB ×3 (04:16→20:38)
[2018-09-02] MEDS: 1/2 NS + KCL 20 MEQ 1,000 ML IV ×3 (04:16→17:08)
[2018-09-02] MEDS: PANTOPRAZOLE 40 MG INJ IV (05:44)
[2018-09-02 05:52] LABS: ADD MAN DIFF? NO
[2018-09-02 06:00] LABS: WHITE BLOOD COUNT 7.3 10^3/ul (4.8-10.8)
[2018-09-02 06:00] LABS: BASOPHILS % 0.3 % (0.0-2.0); EOSINOPHILS # 0.3 10^3/ul (0.0-0.5); EOSINOPHILS % 3.6 % (0.0-7.0); HEMATOCRIT 36.6 % (42.0-52.0); LYMPHOCYTES # 1.5 10^3/ul (0.8-2.9); LYMPHOCYTES % 20.8 % (15.0-51.0); MEAN CORPUSCULAR HEMOGLOBIN 29.7 pg (29.0-33.0); MEAN CORPUSCULAR HGB CONC 32.8 g/dl (32.0-37.0); MEAN CORPUSCULAR VOLUME 90.6 fl (82.0-101.0); MEAN PLATELET VOLUME 9.7 fl (7.4-10.4); MONOCYTE # 0.9 10^3/ul (0.3-0.9); MONOCYTES % 12.4 % (0.0-11.0); NEUTROPHIL # 4.5 10^3/ul (1.6-7.5); NEUTROPHILS % 62.5 % (39.0-77.0); PLATELET COUNT 178 10^3/UL (140-415); RED BLOOD COUNT 4.04 10^6/ul (4.70-6.10); RED CELL DISTRIBUTION WIDTH 13.2 % (11.5-14.5)
[2018-09-02 06:20] LABS: ANION GAP 10 (5-13); BLOOD UREA NITROGEN 13 mg/dl (7-20); CARBON DIOXIDE 22 mmol/L (21-31); CHLORIDE 108 mmol/L (97-110); Estimated GFR > 60 mL/min (>60); GLUCOSE 87 mg/dl (70-220); POTASSIUM 4.1 mmol/L (3.5-5.1); SODIUM 140 mmol/L (135-144)
[2018-09-02] MEDS: HYDROCODONE/APAP (5/325) TAB PO (19:51)
[2018-09-02] MEDS: INSULIN GLARGINE [LANTus] (100 UNITS/ML) SYG SC (20:50)
[2018-09-03] MEDS: INSULIN ASPART [NOVOLOG] 3 ML PEN SC ×3 (01:00→08:48)
[2018-09-03] MEDS: ACCU-CHEK XX (01:48)
[2018-09-03] MEDS: CEFAZOLIN 2 GM/50 ML (PMX) 50 ML IVPB ×2 (04:25→11:56)
[2018-09-03] MEDS: 1/2 NS + KCL 20 MEQ 1,000 ML IV ×3 (05:25→17:29)
[2018-09-03] MEDS: metroNIDAZOLE 500 MG/NS (PMX) 100 ML IVPB ×2 (05:25→12:43)
[2018-09-03] MEDS: PANTOPRAZOLE 40 MG INJ IV (05:45)
[2018-09-03] MEDS: HYDROCODONE/APAP (5/325) TAB PO ×3 (05:46→18:32)
[2018-09-03 06:06] LABS: ADD MAN DIFF? NO
[2018-09-03 06:23] LABS: WHITE BLOOD COUNT 6.8 10^3/ul (4.8-10.8)
[2018-09-03 06:23] LABS: BASOPHILS % 0.4 % (0.0-2.0); EOSINOPHILS # 0.2 10^3/ul (0.0-0.5); EOSINOPHILS % 2.9 % (0.0-7.0); HEMATOCRIT 36.4 % (42.0-52.0); HEMOGLOBIN 11.9 g/dl (14.0-18.0); LYMPHOCYTES # 1.6 10^3/ul (0.8-2.9); LYMPHOCYTES % 23.1 % (15.0-51.0); MEAN CORPUSCULAR HEMOGLOBIN 29.7 pg (29.0-33.0); MEAN CORPUSCULAR HGB CONC 32.7 g/dl (32.0-37.0); MEAN CORPUSCULAR VOLUME 90.8 fl (82.0-101.0); MEAN PLATELET VOLUME 9.5 fl (7.4-10.4); MONOCYTE # 0.8 10^3/ul (0.3-0.9); MONOCYTES % 12.3 % (0.0-11.0); NEUTROPHIL # 4.1 10^3/ul (1.6-7.5); NEUTROPHILS % 60.9 % (39.0-77.0); PLATELET COUNT 194 10^3/UL (140-415); RED BLOOD COUNT 4.01 10^6/ul (4.70-6.10); RED CELL DISTRIBUTION WIDTH 13.2 % (11.5-14.5)
[2018-09-03 07:09] LABS: ANION GAP 13 (5-13); BLOOD UREA NITROGEN 13 mg/dl (7-20); CALCIUM 8.8 mg/dl (8.4-10.2); CARBON DIOXIDE 22 mmol/L (21-31); CHLORIDE 106 mmol/L (97-110); CREATININE 0.77 mg/dl (0.61-1.24); Estimated GFR > 60 mL/min (>60); GLUCOSE 75 mg/dl (70-220); POTASSIUM 4.1 mmol/L (3.5-5.1); SODIUM 141 mmol/L (135-144)
[2018-09-03] MEDS ORDERED: INSULIN ASPART [NOVOLOG] 3 ML PEN SC (11:30)
[2018-09-03] MEDS: Insulin NOVOLOG SS MILD Algorithm (SS with meals and bedtime) SC ×3 (11:30→21:00)
[2018-09-03] MEDS: INSULIN GLARGINE [LANTus] (100 UNITS/ML) SYG SC (21:33)
[2018-09-03] MEDS: morphine 2 MG INJ IV (23:05)
[2018-09-04] MEDS: ACCU-CHEK XX (02:00)
[2018-09-04] MEDS: 1/2 NS + KCL 20 MEQ 1,000 ML IV ×2 (03:00→13:56)
[2018-09-04] MEDS: morphine 2 MG INJ IV ×3 (04:00→23:07)
[2018-09-04] MEDS: PANTOPRAZOLE 40 MG INJ IV (06:21)
[2018-09-04 06:27] LABS: ADD MAN DIFF? NO
[2018-09-04 06:39] LABS: BASOPHILS % 0.5 % (0.0-2.0); EOSINOPHILS # 0.2 10^3/ul (0.0-0.5); EOSINOPHILS % 3.8 % (0.0-7.0); HEMATOCRIT 35.5 % (42.0-52.0); HEMOGLOBIN 11.5 g/dl (14.0-18.0); LYMPHOCYTES # 1.5 10^3/ul (0.8-2.9); LYMPHOCYTES % 26.4 % (15.0-51.0); MEAN CORPUSCULAR HEMOGLOBIN 29.6 pg (29.0-33.0); MEAN CORPUSCULAR HGB CONC 32.4 g/dl (32.0-37.0); MEAN CORPUSCULAR VOLUME 91.3 fl (82.0-101.0); MEAN PLATELET VOLUME 9.5 fl (7.4-10.4); MONOCYTE # 0.7 10^3/ul (0.3-0.9); MONOCYTES % 11.5 % (0.0-11.0); NEUTROPHIL # 3.3 10^3/ul (1.6-7.5); NEUTROPHILS % 57.5 % (39.0-77.0); PLATELET COUNT 188 10^3/UL (140-415); RED BLOOD COUNT 3.89 10^6/ul (4.70-6.10); RED CELL DISTRIBUTION WIDTH 13.4 % (11.5-14.5)
[2018-09-04 06:39] LABS: WHITE BLOOD COUNT 5.8 10^3/ul (4.8-10.8)
[2018-09-04] MEDS: Insulin NOVOLOG SS MILD Algorithm (SS with meals and bedtime) SC ×4 (07:00→20:37)
[2018-09-04 07:21] LABS: ANION GAP 8 (5-13); BLOOD UREA NITROGEN 8 mg/dl (7-20); CALCIUM 8.5 mg/dl (8.4-10.2); CARBON DIOXIDE 27 mmol/L (21-31); CHLORIDE 104 mmol/L (97-110); Estimated GFR > 60 mL/min (>60); GLUCOSE 108 mg/dl (70-220); POTASSIUM 4.1 mmol/L (3.5-5.1); SODIUM 139 mmol/L (135-144)
[2018-09-04] MEDS: HYDROCODONE/APAP (5/325) TAB PO (16:05)
[2018-09-04] MEDS: FAMOTIDINE 20 MG INJ IV (20:36)
[2018-09-04] MEDS: INSULIN GLARGINE [LANTus] (100 UNITS/ML) SYG SC (20:37)
[2018-09-05] MEDS: 1/2 NS + KCL 20 MEQ 1,000 ML IV ×3 (01:30→22:14)
[2018-09-05] MEDS: ACCU-CHEK XX (02:00)
[2018-09-05 05:53] LABS: ADD MAN DIFF? NO
[2018-09-05 05:56] LABS: BASOPHILS % 0.6 % (0.0-2.0); EOSINOPHILS # 0.2 10^3/ul (0.0-0.5); HEMATOCRIT 35.7 % (42.0-52.0); HEMOGLOBIN 11.9 g/dl (14.0-18.0); LYMPHOCYTES # 1.9 10^3/ul (0.8-2.9); LYMPHOCYTES % 35.6 % (15.0-51.0); MEAN CORPUSCULAR HEMOGLOBIN 30.4 pg (29.0-33.0); MEAN CORPUSCULAR HGB CONC 33.3 g/dl (32.0-37.0); MEAN CORPUSCULAR VOLUME 91.1 fl (82.0-101.0); MEAN PLATELET VOLUME 9.5 fl (7.4-10.4); MONOCYTE # 0.6 10^3/ul (0.3-0.9); NEUTROPHIL # 2.6 10^3/ul (1.6-7.5); NEUTROPHILS % 48.6 % (39.0-77.0); PLATELET COUNT 195 10^3/UL (140-415); RED BLOOD COUNT 3.92 10^6/ul (4.70-6.10); RED CELL DISTRIBUTION WIDTH 13.3 % (11.5-14.5)
[2018-09-05 05:56] LABS: WHITE BLOOD COUNT 5.3 10^3/ul (4.8-10.8)
[2018-09-05 06:28] LABS: ANION GAP 8 (5-13); BLOOD UREA NITROGEN 6 mg/dl (7-20); CALCIUM 9.3 mg/dl (8.4-10.2); CARBON DIOXIDE 28 mmol/L (21-31); CHLORIDE 108 mmol/L (97-110); Estimated GFR > 60 mL/min (>60); GLUCOSE 104 mg/dl (70-220); POTASSIUM 4.1 mmol/L (3.5-5.1); SODIUM 144 mmol/L (135-144)
[2018-09-05] MEDS: Insulin NOVOLOG SS MILD Algorithm (SS with meals and bedtime) SC ×4 (07:00→21:00)
[2018-09-05] MEDS: FAMOTIDINE 20 MG INJ IV ×2 (08:24→22:13)
[2018-09-05] MEDS: HYDROCODONE/APAP (5/325) TAB PO (13:44)
[2018-09-05] MEDS ORDERED: DOCUSATE SODIUM 100 MG CAP PO (16:30)
[2018-09-05] MEDS: INSULIN GLARGINE [LANTus] (100 UNITS/ML) SYG SC (22:16)
[2018-09-05] MEDS: morphine 2 MG INJ IV (23:37)
[2018-09-06] MEDS: ACCU-CHEK XX (02:00)
[2018-09-06 05:26] LABS: ADD MAN DIFF? NO
[2018-09-06 05:30] LABS: WHITE BLOOD COUNT 5.6 10^3/ul (4.8-10.8)
[2018-09-06 05:30] LABS: BASOPHILS % 0.4 % (0.0-2.0); EOSINOPHILS # 0.1 10^3/ul (0.0-0.5); HEMATOCRIT 36.3 % (42.0-52.0); LYMPHOCYTES % 35.7 % (15.0-51.0); MEAN CORPUSCULAR HEMOGLOBIN 30.4 pg (29.0-33.0); MEAN CORPUSCULAR HGB CONC 33.1 g/dl (32.0-37.0); MEAN CORPUSCULAR VOLUME 91.9 fl (82.0-101.0); MEAN PLATELET VOLUME 9.7 fl (7.4-10.4); MONOCYTE # 0.5 10^3/ul (0.3-0.9); MONOCYTES % 8.4 % (0.0-11.0); NEUTROPHILS % 53.1 % (39.0-77.0); PLATELET COUNT 201 10^3/UL (140-415); RED BLOOD COUNT 3.95 10^6/ul (4.70-6.10); RED CELL DISTRIBUTION WIDTH 13.2 % (11.5-14.5)
[2018-09-06 05:40] LABS: ANION GAP 6 (5-13); BLOOD UREA NITROGEN 6 mg/dl (7-20); CARBON DIOXIDE 28 mmol/L (21-31); CHLORIDE 108 mmol/L (97-110); CREATININE 0.85 mg/dl (0.61-1.24); Estimated GFR > 60 mL/min (>60); GLUCOSE 98 mg/dl (70-220); POTASSIUM 4.4 mmol/L (3.5-5.1); SODIUM 142 mmol/L (135-144)
[2018-09-06] MEDS: Insulin NOVOLOG SS MILD Algorithm (SS with meals and bedtime) SC ×3 (07:00→17:15)
[2018-09-06] MEDS: 1/2 NS + KCL 20 MEQ 1,000 ML IV ×2 (07:47→17:15)
[2018-09-06] MEDS: FAMOTIDINE 20 MG INJ IV (08:38)
[2018-09-06] MEDS: HYDROCODONE/APAP (5/325) TAB PO ×2 (08:43→17:20)
== END 2018-09-06 18:32 | disposition home or self-care (01) | DRG 330 ==
LOC: E/R 11:51 → 6WM 08-30 18:50 → PP2 14:39
PROC: 0DTF0ZZ Resection of Right Large Intestine, Open Approach (ICD-10-PCS; principal; 2018-08-28 15:20)
PROC: 0DNB4ZZ Release Ileum, Percutaneous Endoscopic Approach (ICD-10-PCS; 2018-08-28 15:20)
PROC: 0WQF0ZZ Repair Abdominal Wall, Open Approach (ICD-10-PCS; 2018-08-28 15:20)
PROC: 0DBL0ZZ Excision of Transverse Colon, Open Approach (ICD-10-PCS; 2018-08-28 15:20)
PROC: 0DBN8ZZ Excision of Sigmoid Colon, Via Natural or Artificial Opening Endoscopic (ICD-10-PCS; 2018-08-28 15:20)
PROC: 0DBL8ZZ Excision of Transverse Colon, Via Natural or Artificial Opening Endoscopic (ICD-10-PCS; 2018-08-28 15:20)
PROC: 0DBL8ZX Excision of Transverse Colon, Via Natural or Artificial Opening Endoscopic, Diagnostic (ICD-10-PCS; 2018-08-28 15:20)
DX: C18.3 Malignant neoplasm of hepatic flexure (principal); K56.690 Other partial intestinal obstruction; K56.41 Fecal impaction; D12.5 Benign neoplasm of sigmoid colon; D12.3 Benign neoplasm of transverse colon; I10 Essential (primary) hypertension; K66.0 Peritoneal adhesions (postprocedural) (postinfection); N40.0 Benign prostatic hyperplasia without lower urinary tract symptoms; E11.9 Type 2 diabetes mellitus without complications; K43.9 Ventral hernia without obstruction or gangrene; E78.5 Hyperlipidemia, unspecified; R00.1 Bradycardia, unspecified; F17.210 Nicotine dependence, cigarettes, uncomplicated; Z79.4 Long term (current) use of insulin
CPT/HCPCS: 36415; 71045; 74176; 74270; 80048; 80053; 80061; 81001; 82378; 82962; 83036; 83690; 84484; 85025; 85049; 85610; 85670; 85730; 86850; 86900; 86901; 87081; 87086; 88305; 88307; 93005; 93306; 96374; 96375; 97161; 97530; 99285-25

== ENCOUNTER 2018-09-26 04:08 | Inpatient (IN) | payer MEDICARE, BC ==
[2018-09-26 04:51] LABS: ADD MAN DIFF? NO
[2018-09-26 04:54] LABS: BASOPHILS % 0.6 % (0.0-2.0); EOSINOPHILS # 0.1 10^3/ul (0.0-0.5); HEMOGLOBIN 13.4 g/dl (14.0-18.0); LYMPHOCYTES # 2.7 10^3/ul (0.8-2.9); LYMPHOCYTES % 38.3 % (15.0-51.0); MEAN CORPUSCULAR HEMOGLOBIN 29.3 pg (29.0-33.0); MEAN CORPUSCULAR HGB CONC 32.7 g/dl (32.0-37.0); MEAN CORPUSCULAR VOLUME 89.5 fl (82.0-101.0); MEAN PLATELET VOLUME 9.8 fl (7.4-10.4); MONOCYTE # 0.5 10^3/ul (0.3-0.9); MONOCYTES % 6.4 % (0.0-11.0); NEUTROPHIL # 3.7 10^3/ul (1.6-7.5); NEUTROPHILS % 52.4 % (39.0-77.0); PLATELET COUNT 194 10^3/UL (140-415); RED BLOOD COUNT 4.58 10^6/ul (4.70-6.10); RED CELL DISTRIBUTION WIDTH 13.1 % (11.5-14.5)
[2018-09-26 04:54] LABS: WHITE BLOOD COUNT 7.1 10^3/ul (4.8-10.8)
[2018-09-26 05:09] LABS: ANION GAP 12 (5-13); BLOOD UREA NITROGEN 15 mg/dl (7-20); CALCIUM 9.3 mg/dl (8.4-10.2); CARBON DIOXIDE 24 mmol/L (21-31); CHLORIDE 104 mmol/L (97-110); CREATININE 0.93 mg/dl (0.61-1.24); Estimated GFR > 60 mL/min (>60); GLUCOSE 272 mg/dl (70-220); POTASSIUM 4.3 mmol/L (3.5-5.1); SODIUM 140 mmol/L (135-144)
[2018-09-26 05:21] LABS: TROPONIN-I < 0.012 ng/ml (0.000-0.120)
[2018-09-26 10:46] LABS: CREATINE KINASE 26 IU/L (23-200)
[2018-09-26 10:59] LABS: CK-MB 0.26 ng/ml (0.0-2.4); TROPONIN-I < 0.012 ng/ml (0.000-0.120)
[2018-09-26] MEDS ORDERED: GLUCOSE GEL 15 GRAM TUBE PO ×2 (12:30)
[2018-09-26] MEDS ORDERED: NITROGLYCERIN (SL) 0.4 MG TAB SL (12:30)
[2018-09-26] MEDS ORDERED: GLUCOSE GEL 15 GRAM TUBE BUCCAL (12:30)
[2018-09-26] MEDS ORDERED: ZOLPIDEM 5 MG TAB PO (12:30)
[2018-09-26] MEDS ORDERED: BISACODYL (EC) 5 MG TAB PO (12:30)
[2018-09-26] MEDS ORDERED: DEXTROSE 50% 50 ML SYRINGE IV ×2 (12:30)
[2018-09-26] MEDS ORDERED: NACL 0.9% 3 ML SYG IV (12:30)
[2018-09-26] MEDS ORDERED: HYDROCODONE/APAP (5/325) TAB PO (12:30)
[2018-09-26] MEDS ORDERED: GLUCAGON 1 MG INJ IM (12:30)
[2018-09-26] MEDS ORDERED: ACETAMINOPHEN 325 MG TAB PO (12:30)
[2018-09-26] MEDS ORDERED: ONDANSETRON 4 MG INJ IV (12:30)
[2018-09-26] MEDS: ASPIRIN (EC) 81 MG TAB PO (14:50)
[2018-09-26 17:07] LABS: CREATINE KINASE 29 IU/L (23-200)
[2018-09-26 17:19] LABS: CK INDEX 0.8; CK-MB < 0.22 ng/ml (0.0-2.4); TROPONIN-I < 0.012 ng/ml (0.000-0.120)
[2018-09-26] MEDS: INSULIN ASPART [NOVOLOG] 3 ML PEN SC ×3 (17:55→22:18)
[2018-09-26] MEDS: metFORMIN 500 MG TAB PO (18:33)
[2018-09-26] MEDS: TAMSULOSIN (SR) 0.4 MG CAP PO (21:00)
[2018-09-26] MEDS: morphine 2 MG INJ IV (21:58)
[2018-09-26] MEDS: ATORVASTATIN 40 MG TAB PO (22:02)
[2018-09-26] MEDS: DOCUSATE SODIUM 100 MG CAP PO (22:02)
[2018-09-26 22:17] LABS: CREATINE KINASE 23 IU/L (23-200)
[2018-09-26] MEDS: INSULIN GLARGINE [LANTus] (100 UNITS/ML) SYG SC (22:17)
[2018-09-26 22:28] LABS: CK-MB < 0.22 ng/ml (0.0-2.4); TROPONIN-I < 0.012 ng/ml (0.000-0.120)
[2018-09-27] MEDS: ACCU-CHEK XX (02:32)
[2018-09-27] MEDS: morphine 2 MG INJ IV ×2 (03:53→15:17)
[2018-09-27] MEDS: PANTOPRAZOLE (EC) 40 MG TAB PO (06:11)
[2018-09-27 06:43] LABS: ADD MAN DIFF? NO
[2018-09-27 06:51] LABS: BASOPHILS % 0.6 % (0.0-2.0); EOSINOPHILS # 0.1 10^3/ul (0.0-0.5); EOSINOPHILS % 2.2 % (0.0-7.0); HEMOGLOBIN 12.7 g/dl (14.0-18.0); LYMPHOCYTES # 2.9 10^3/ul (0.8-2.9); LYMPHOCYTES % 45.9 % (15.0-51.0); MEAN CORPUSCULAR HEMOGLOBIN 29.6 pg (29.0-33.0); MEAN CORPUSCULAR HGB CONC 32.6 g/dl (32.0-37.0); MEAN CORPUSCULAR VOLUME 90.9 fl (82.0-101.0); MEAN PLATELET VOLUME 9.8 fl (7.4-10.4); MONOCYTE # 0.5 10^3/ul (0.3-0.9); MONOCYTES % 7.3 % (0.0-11.0); NEUTROPHIL # 2.8 10^3/ul (1.6-7.5); NEUTROPHILS % 43.8 % (39.0-77.0); PLATELET COUNT 174 10^3/UL (140-415); RED BLOOD COUNT 4.29 10^6/ul (4.70-6.10); RED CELL DISTRIBUTION WIDTH 13.2 % (11.5-14.5)
[2018-09-27 06:51] LABS: WHITE BLOOD COUNT 6.3 10^3/ul (4.8-10.8)
[2018-09-27 07:06] LABS: CHOLESTEROL 187 mg/dl (100-200)
[2018-09-27 07:06] LABS: CHOL/HDL RATIO 7.4 RATIO; HDL CHOLESTEROL 25 mg/dl (30-78); LDL CHOLESTEROL,CALCULATED 111 mg/dl; TRIGLYCERIDES 257 mg/dl (0-149)
[2018-09-27 07:09] LABS: ALANINE AMINOTRANSFERASE 24 IU/L (13-69); ALBUMIN 3.9 g/dl (3.3-4.9); ALBUMIN/GLOBULIN RATIO 1.44; ALKALINE PHOSPHATASE 65 IU/L (42-121); ANION GAP 8 (5-13); ASPARTATE AMINO TRANSFERASE 19 IU/L (15-46); BILIRUBIN,INDIRECT 0.4 mg/dl (0-1.1); BILIRUBIN,TOTAL 0.4 mg/dl (0.2-1.3); BLOOD UREA NITROGEN 14 mg/dl (7-20); CALCIUM 9.4 mg/dl (8.4-10.2); CARBON DIOXIDE 27 mmol/L (21-31); CHLORIDE 107 mmol/L (97-110); CREATININE 0.79 mg/dl (0.61-1.24); Estimated GFR > 60 mL/min (>60); GLUCOSE 122 mg/dl (70-220); MAGNESIUM 1.9 mg/dl (1.7-2.5); POTASSIUM 4.2 mmol/L (3.5-5.1); SODIUM 142 mmol/L (135-144); TOTAL PROTEIN 6.6 g/dl (6.1-8.1)
[2018-09-27 07:29] LABS: HEMOGLOBIN A1C 7.6 % (0-5.9)
[2018-09-27] MEDS: metFORMIN 500 MG TAB PO ×2 (07:52→17:07)
[2018-09-27] MEDS: INSULIN ASPART [NOVOLOG] 3 ML PEN SC ×7 (07:52→20:26)
[2018-09-27] MEDS: DOCUSATE SODIUM 100 MG CAP PO ×2 (09:00→20:26)
[2018-09-27] MEDS ORDERED: ASPIRIN (EC) 81 MG TAB PO (09:00)
[2018-09-27] MEDS: SENNA TAB PO ×2 (09:00→17:19)
[2018-09-27] MEDS: MEMANTINE 5 MG TAB PO (09:00)
[2018-09-27] MEDS: ASPIRIN (EC) 81 MG TAB PO ×2 (09:00→15:16)
[2018-09-27] MEDS: ENOXAPARIN 30 MG/0.3 ML SYG SC (09:10)
[2018-09-27] MEDS: REGADENOSON 0.4 MG/5 ML SYG (12:22)
[2018-09-27] MEDS: TAMSULOSIN (SR) 0.4 MG CAP PO (20:26)
[2018-09-27] MEDS: ATORVASTATIN 40 MG TAB PO (20:26)
[2018-09-27] MEDS: INSULIN GLARGINE [LANTus] (100 UNITS/ML) SYG SC (20:31)
[2018-09-28] MEDS: morphine 2 MG INJ IV (02:23)
[2018-09-28] MEDS: ACCU-CHEK XX (02:34)
[2018-09-28] MEDS ORDERED: LORAZEPAM 2 MG INJ IV (05:30)
[2018-09-28] MEDS: PANTOPRAZOLE (EC) 40 MG TAB PO (05:48)
[2018-09-28 07:29] LABS: CREATINE KINASE 24 IU/L (23-200)
[2018-09-28 07:36] LABS: CK INDEX 0.9; CK-MB < 0.22 ng/ml (0.0-2.4); TROPONIN-I < 0.012 ng/ml (0.000-0.120)
[2018-09-28] MEDS: ASPIRIN (EC) 81 MG TAB PO (08:54)
[2018-09-28] MEDS: MEMANTINE 5 MG TAB PO (08:56)
[2018-09-28] MEDS: SENNA TAB PO (08:56)
[2018-09-28] MEDS: DOCUSATE SODIUM 100 MG CAP PO ×2 (08:56→21:09)
[2018-09-28] MEDS: INSULIN ASPART [NOVOLOG] 3 ML PEN SC ×7 (09:05→21:00)
[2018-09-28] MEDS: ENOXAPARIN 30 MG/0.3 ML SYG SC (09:05)
[2018-09-28] MEDS: metFORMIN 500 MG TAB PO ×2 (09:09→17:57)
[2018-09-28 12:37] LABS: CREATINE KINASE 28 IU/L (23-200)
[2018-09-28 12:54] LABS: CK INDEX 0.8; CK-MB < 0.22 ng/ml (0.0-2.4); TROPONIN-I < 0.012 ng/ml (0.000-0.120)
[2018-09-28] MEDS: TAMSULOSIN (SR) 0.4 MG CAP PO (21:08)
[2018-09-28] MEDS: ATORVASTATIN 40 MG TAB PO (21:08)
[2018-09-28] MEDS: ISOSORBIDE DINITRATE 20 MG TAB PO (21:11)
[2018-09-28] MEDS: INSULIN GLARGINE [LANTus] (100 UNITS/ML) SYG SC (21:15)
[2018-09-29] MEDS: morphine 2 MG INJ IV ×2 (00:22→21:52)
[2018-09-29] MEDS: ACCU-CHEK XX (01:06)
[2018-09-29] MEDS: PANTOPRAZOLE (EC) 40 MG TAB PO (06:00)
[2018-09-29 06:12] LABS: ADD MAN DIFF? NO
[2018-09-29 06:18] LABS: WHITE BLOOD COUNT 4.9 10^3/ul (4.8-10.8)
[2018-09-29 06:18] LABS: BASOPHILS % 0.6 % (0.0-2.0); EOSINOPHILS # 0.1 10^3/ul (0.0-0.5); EOSINOPHILS % 1.6 % (0.0-7.0); HEMATOCRIT 34.8 % (42.0-52.0); HEMOGLOBIN 11.6 g/dl (14.0-18.0); LYMPHOCYTES # 2.1 10^3/ul (0.8-2.9); LYMPHOCYTES % 43.6 % (15.0-51.0); MEAN CORPUSCULAR HEMOGLOBIN 29.8 pg (29.0-33.0); MEAN CORPUSCULAR HGB CONC 33.3 g/dl (32.0-37.0); MEAN CORPUSCULAR VOLUME 89.5 fl (82.0-101.0); MEAN PLATELET VOLUME 10.1 fl (7.4-10.4); MONOCYTE # 0.3 10^3/ul (0.3-0.9); MONOCYTES % 6.8 % (0.0-11.0); NEUTROPHIL # 2.3 10^3/ul (1.6-7.5); PLATELET COUNT 135 10^3/UL (140-415); RED BLOOD COUNT 3.89 10^6/ul (4.70-6.10); RED CELL DISTRIBUTION WIDTH 13.2 % (11.5-14.5)
[2018-09-29 06:46] LABS: INR 0.92; PROTIME 12.5 Sec (11.9-14.9)
[2018-09-29 06:47] LABS: PARTIAL THROMBOPLASTIN TIME 29.1 Sec (23.0-35.0)
[2018-09-29 06:51] LABS: ANION GAP 9 (5-13); BLOOD UREA NITROGEN 12 mg/dl (7-20); CALCIUM 9.3 mg/dl (8.4-10.2); CARBON DIOXIDE 25 mmol/L (21-31); CHLORIDE 108 mmol/L (97-110); CREATININE 0.78 mg/dl (0.61-1.24); Estimated GFR > 60 mL/min (>60); GLUCOSE 143 mg/dl (70-220); POTASSIUM 3.9 mmol/L (3.5-5.1); SODIUM 142 mmol/L (135-144)
[2018-09-29] MEDS ORDERED: DIAZEPAM 5 MG TAB PO (07:00)
[2018-09-29] MEDS ORDERED: DIPHENHYDRAMINE 50 MG CAP PO (07:00)
[2018-09-29] MEDS: metFORMIN 500 MG TAB PO (07:55)
[2018-09-29] MEDS: INSULIN ASPART [NOVOLOG] 3 ML PEN SC ×7 (07:55→20:57)
[2018-09-29] MEDS: ISOSORBIDE DINITRATE 20 MG TAB PO ×3 (08:04→20:57)
[2018-09-29] MEDS: MEMANTINE 5 MG TAB PO (08:20)
[2018-09-29] MEDS: DOCUSATE SODIUM 100 MG CAP PO ×2 (08:22→20:55)
[2018-09-29] MEDS: ASPIRIN (EC) 81 MG TAB PO (08:22)
[2018-09-29] MEDS: ENOXAPARIN 30 MG/0.3 ML SYG SC (08:23)
[2018-09-29] MEDS: SENNA TAB PO (08:26)
[2018-09-29] MEDS ORDERED: SOD CHLORIDE 0.9% 500 ML (09:49)
[2018-09-29] MEDS ORDERED: VERAPAMIL 5 MG INJ (09:49)
[2018-09-29] MEDS ORDERED: IODIXANOL LOCM 100 ML BTL (09:49)
[2018-09-29] MEDS ORDERED: HEPARIN 1000 UNITS/ML 10 ML INJ (09:49)
[2018-09-29] MEDS ORDERED: NITROGLYCERIN (IC) 100 MCG/ML INJ (09:49)
[2018-09-29] MEDS ORDERED: FENTAnyl 50 MCG/ML VIAL (09:49)
[2018-09-29] MEDS ORDERED: LIDOCAINE 1% (MDV) 20 ML INJ (09:49)
[2018-09-29] MEDS ORDERED: MIDAZOLAM 1 MG/ML 2 ML INJ (09:50)
[2018-09-29] MEDS ORDERED: BIVALIRUDIN 250MG /NS 50 ML 50 ML IVPB (11:02)
[2018-09-29] MEDS ORDERED: IOHEXOL 350MG/ML 50 ML BTL (11:02)
[2018-09-29] MEDS ORDERED: TICAGRELOR 90 MG TABLET (11:23)
[2018-09-29] MEDS ORDERED: ASPIRIN 325 MG TAB (11:23)
[2018-09-29] MEDS ORDERED: OXYCODONE/ACETAMINOPHEN (5/325) TAB PO (11:30)
[2018-09-29] MEDS ORDERED: ACETAMINOPHEN 325 MG TAB PO (11:30)
[2018-09-29] MEDS ORDERED: ZOLPIDEM 5 MG TAB PO (11:30)
[2018-09-29] MEDS: SOD CHLORIDE 0.9% 1,000 ML IV (12:29)
[2018-09-29] MEDS: ATORVASTATIN 40 MG TAB PO (20:55)
[2018-09-29] MEDS: TAMSULOSIN (SR) 0.4 MG CAP PO (20:56)
[2018-09-29] MEDS: TICAGRELOR 90 MG TABLET PO (21:40)
[2018-09-29] MEDS: INSULIN GLARGINE [LANTus] (100 UNITS/ML) SYG SC (21:42)
[2018-09-30] MEDS: morphine 2 MG INJ IV (00:34)
[2018-09-30] MEDS: ACCU-CHEK XX (02:00)
[2018-09-30 06:25] LABS: ADD MAN DIFF? NO
[2018-09-30 06:41] LABS: BASOPHILS % 0.4 % (0.0-2.0); EOSINOPHILS # 0.1 10^3/ul (0.0-0.5); EOSINOPHILS % 1.2 % (0.0-7.0); HEMATOCRIT 35.3 % (42.0-52.0); HEMOGLOBIN 11.6 g/dl (14.0-18.0); MEAN CORPUSCULAR HEMOGLOBIN 29.5 pg (29.0-33.0); MEAN CORPUSCULAR HGB CONC 32.9 g/dl (32.0-37.0); MEAN CORPUSCULAR VOLUME 89.8 fl (82.0-101.0); MEAN PLATELET VOLUME 10.1 fl (7.4-10.4); MONOCYTE # 0.5 10^3/ul (0.3-0.9); MONOCYTES % 8.8 % (0.0-11.0); NEUTROPHIL # 3.1 10^3/ul (1.6-7.5); NEUTROPHILS % 54.2 % (39.0-77.0); PLATELET COUNT 139 10^3/UL (140-415); RED BLOOD COUNT 3.93 10^6/ul (4.70-6.10); RED CELL DISTRIBUTION WIDTH 13.1 % (11.5-14.5)
[2018-09-30 06:41] LABS: WHITE BLOOD COUNT 5.7 10^3/ul (4.8-10.8)
[2018-09-30] MEDS: PANTOPRAZOLE (EC) 40 MG TAB PO (06:45)
[2018-09-30 07:09] LABS: ANION GAP 4 (5-13); BLOOD UREA NITROGEN 13 mg/dl (7-20); CALCIUM 8.9 mg/dl (8.4-10.2); CARBON DIOXIDE 26 mmol/L (21-31); CHLORIDE 111 mmol/L (97-110); CREATININE 0.92 mg/dl (0.61-1.24); Estimated GFR > 60 mL/min (>60); GLUCOSE 133 mg/dl (70-220); POTASSIUM 4.1 mmol/L (3.5-5.1); SODIUM 141 mmol/L (135-144)
[2018-09-30] MEDS: INSULIN ASPART [NOVOLOG] 3 ML PEN SC ×4 (08:15→11:46)
[2018-09-30] MEDS: SENNA TAB PO (08:34)
[2018-09-30] MEDS: MEMANTINE 5 MG TAB PO (08:34)
[2018-09-30] MEDS: ASPIRIN (EC) 81 MG TAB PO (08:35)
[2018-09-30] MEDS: DOCUSATE SODIUM 100 MG CAP PO (08:37)
[2018-09-30] MEDS: ISOSORBIDE DINITRATE 20 MG TAB PO ×2 (08:37→12:10)
[2018-09-30] MEDS: ENOXAPARIN 30 MG/0.3 ML SYG SC (08:58)
[2018-09-30] MEDS: TICAGRELOR 90 MG TABLET PO (08:58)
[2018-09-30] MEDS ORDERED: ASPIRIN (EC) 81 MG TAB PO (09:00)
== END 2018-09-30 16:46 | disposition home or self-care (01) | DRG 247 ==
LOC: TEL 17:46 → E/R 04:08 → TEL 09-29 12:33
PROC: 027034Z Dilation of Coronary Artery, One Artery with Drug-eluting Intraluminal Device, Percutaneous Approach (ICD-10-PCS; principal; 2018-09-29 09:21)
PROC: 02703ZZ Dilation of Coronary Artery, One Artery, Percutaneous Approach (ICD-10-PCS; 2018-09-29 09:21)
PROC: 4A023N7 Measurement of Cardiac Sampling and Pressure, Left Heart, Percutaneous Approach (ICD-10-PCS; 2018-09-29 09:21)
PROC: B211YZZ Fluoroscopy of Multiple Coronary Arteries using Other Contrast (ICD-10-PCS; 2018-09-29 09:21)
DX: I25.119 Atherosclerotic heart disease of native coronary artery with unspecified angina pectoris (principal); I10 Essential (primary) hypertension; E78.5 Hyperlipidemia, unspecified; F17.200 Nicotine dependence, unspecified, uncomplicated; E11.9 Type 2 diabetes mellitus without complications; D64.9 Anemia, unspecified; Z79.4 Long term (current) use of insulin; Z85.038 Personal history of other malignant neoplasm of large intestine
CPT/HCPCS: 36415; 71045; 78452; 80048; 80053; 80061; 82550; 82553; 82962; 83036; 83735; 84443; 84484; 85025; 85610; 85730; 92920; 93005; 93017; 93458; 99285-25; G0378

== ENCOUNTER 2018-12-11 16:01 | Emergency (ER) | payer MEDICARE, BC | END 2018-12-11 19:57 | disposition home or self-care (01) | LOC: E/R 19:57 | DX: R04.0 Epistaxis (principal); I10 Essential (primary) hypertension; E11.9 Type 2 diabetes mellitus without complications; I25.10 Atherosclerotic heart disease of native coronary artery without angina pectoris; Z79.4 Long term (current) use of insulin; Z79.82 Long term (current) use of aspirin; Z85.038 Personal history of other malignant neoplasm of large intestine | CPT/HCPCS: 30903; 99283-25 ==

== ENCOUNTER 2018-12-13 17:52 | Emergency (ER) | payer MEDICARE, BC | END 2018-12-13 20:51 | disposition home or self-care (01) | LOC: FTE 17:52 | DX: R04.0 Epistaxis (principal); I10 Essential (primary) hypertension; E11.9 Type 2 diabetes mellitus without complications; Z48.00 Encounter for change or removal of nonsurgical wound dressing; Z79.4 Long term (current) use of insulin; Z79.82 Long term (current) use of aspirin; Z85.038 Personal history of other malignant neoplasm of large intestine; Z87.891 Personal history of nicotine dependence | CPT/HCPCS: 99282 ==